=== PATIENT | born 2000 | race Hispanic/Latino ===

== ENCOUNTER 2021-05-29 00:33 | Emergency (ER) | payer SELFPAY ==
[2021-05-29] MEDS ORDERED: Fentanyl 100 MCG/2 ML VIAL ONE (03:40)
[2021-05-29] MEDS ORDERED: Lidocaine 1% (PF) 30 ML VIAL ONE (03:45)
== END 2021-05-29 05:00 | disposition home or self-care (01) ==
LOC: ERS 00:33
DX: S02.31XA Fracture of orbital floor, right side, initial encounter for closed fracture (principal); S02.5XXA Fracture of tooth (traumatic), initial encounter for closed fracture; S01.511A Laceration without foreign body of lip, initial encounter; W05.1XXA Fall from non-moving nonmotorized scooter, initial encounter
CPT/HCPCS: 12011; 70450; 70486; 72125; 96374; J2001; J3010